=== PATIENT | female | born 2000 | race Asian ===

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

== ENCOUNTER → 2021-05-08 | Outpatient (REF) | LOC: M PLAIMG 09:05 | PROVIDERS: ATTEND Internal Medicine | DX: R07.89 Other chest pain (principal); M54.2 Cervicalgia; M54.50 Low back pain, unspecified ==